=== PATIENT | female | born 1980 | race Caucasian/White ===

== ENCOUNTER 2020-08-03 09:28 | Inpatient (IN) | payer OTHER ==
[~2020-08-03] VITALS: Ht 165.1 cm; Wt 120.7 kg
[~2020-08-03 09:28] MED LIST: DOK PLUS TABLE1 EACH PO; FERROUS SULFAT325 M2 PO; LOPRESSOR 25 MG25 MG PO; LORTAB 5-325 M1 EACH PO; PRADAXA 150 MG150 MG PO; ROBITUSSIN DM UD5 ML PO; VANCOMYCIN IV750 MG IV
[2020-08-03 10:27] LABS: HEMOGLOBIN 13.3 gm/dl (12.3-15.3); RED BLOOD COUNT 4.54 M/UL (4.00-5.10); WHITE BLOOD COUNT 14.1 K/UL (4.5-11.0)
[2020-08-03 12:10] LABS: BUN/CREATININE RATIO 14 (0-10)
[2020-08-03] MEDS ORDERED: VENTOLIN HFA 66.7 GM INH (15:36)
[2020-08-03] MEDS ORDERED: ANORO ELLIPTA1 EACH INH (15:37)
[2020-08-03] MEDS ORDERED: BUPRENORPHIN-N1 EACH SL (15:51)
[2020-08-03] MEDS ORDERED: SINUS RELIEF (16:57)
[2020-08-04 04:58] LABS: HEMOGLOBIN 13.2 gm/dl (12.3-15.3); RED BLOOD COUNT 4.61 M/UL (4.00-5.10); WHITE BLOOD COUNT 11.8 K/UL (4.5-11.0)
[2020-08-04 05:19] LABS: BUN/CREATININE RATIO 14 (0-10)
--- NOTE | 2020-08-05 23:28 | NUR ---
PT IS S/P I&D TO ABDOMEN ON 08/05/20. PT STATED THAT SHE DID NOT WISH TO CHANGE THE DRESSING TODAY FOR SHE JUST HAD SURGERY AND DID NOT WANT TO DEAL WITH CHANGING THE DRESSING. EDUCATION GIVEN, PT STATED SHE WISHES TO START THE DRESSING CHANGE TOMORROW, 08/06/20. ERNESTO
[2020-08-06 04:51] LABS: HEMOGLOBIN 12.5 gm/dl (12.3-15.3); RED BLOOD COUNT 4.49 M/UL (4.00-5.10); WHITE BLOOD COUNT 8.9 K/UL (4.5-11.0)
[2020-08-06 05:18] LABS: BUN/CREATININE RATIO 20 (0-10)
[2020-08-07 08:51] LABS: BUN/CREATININE RATIO 31 (0-10)
[2020-08-08 07:12] LABS: BUN/CREATININE RATIO 38 (0-10)
[2020-08-08] MEDS ORDERED: IBUPROFEN800 MG PO (10:26)
[2020-08-08] MEDS ORDERED: AUGMENTIN 875-1 EACH PO (10:51)
--- NOTE | 2020-08-08 12:05 | NUR ---
INSTRUCTED PATIENT ON SIDE EFFECTS OF MEDS INFORMATION GIVEN, MEDS E-SCRIPTED TO PHARMACY WITH ONE HARD COPY GIVEN ALSO, EDUACATION GIVEN ON MEDS AND CELLULITS. FOLOW UP APPOITMENTS LISTED. VERBALIZED UNDERSTANDING.
--- NOTE | 2020-08-08 15:10 | NUR ---
REPORT CALLED TO [facility], REPORT GIVEN TO DREW.
== END 2020-08-08 14:29 | disposition home health service (06) | DRG 580 ==
LOC: ER1 09:28 → M/S 14:13 → CDU 14:13 → M/S 19:47
PROVIDERS: Physician Assistant; Physician Assistant Medical; Surgery; ADMIT Internal Medicine
PROC: 0J980ZZ Drainage of Abdomen Subcutaneous Tissue and Fascia, Open Approach (ICD-10-PCS; principal; 2020-08-05 13:45)
DX: L02.211 Cutaneous abscess of abdominal wall (principal); F11.20 Opioid dependence, uncomplicated; Z68.41 Body mass index [BMI] 40.0-44.9, adult; E66.01 Morbid (severe) obesity due to excess calories; B95.0 Streptococcus, group A, as the cause of diseases classified elsewhere; L03.311 Cellulitis of abdominal wall; Z86.14 Personal history of Methicillin resistant Staphylococcus aureus infection; Z86.711 Personal history of pulmonary embolism; R59.0 Localized enlarged lymph nodes; R16.2 Hepatomegaly with splenomegaly, not elsewhere classified; Z90.49 Acquired absence of other specified parts of digestive tract; Z86.19 Personal history of other infectious and parasitic diseases; G89.29 Other chronic pain; M54.9 Dorsalgia, unspecified; Z86.16 Personal history of COVID-19
CPT/HCPCS: 36415; 71045; 80048; 80053; 80202; 82728; 83605; 83615; 83735; 85025; 85027; 85379; 86140; 87040; 87070; 87077; 87186; 87205; 96365; 96366; 96372; 96374; 96375; 96376; 99285; G0378; J0696; J1100; J1650; J1885; J2001; J2185; J2250; J2405; J2704; J3010; J3370; J7030; J7050; J7070; J7120; Q9967; U0002

== ENCOUNTER → 2020-09-19 | Outpatient (CLI) | payer OTHER ==
[~2020-09-19] MED LIST changes: +ALLERGY RELIEF10 M1 PO; +ANORO ELLIPTA1 EACH INH; +AUGMENTIN 875-1 EACH PO; +BUPRENORPHIN-N1 EACH SL; +IBUPROFEN800 MG PO; +MEDROL4 MG PO; +PROMETHAZINE-D473 M1 PO; +SINUS RELIEF; +TOPAMAX 25 MG T25 MG PO; +VENTOLIN HFA 66.7 GM INH
== END ==
LOC: ECHO 11:57
DX: Z86.79 Personal history of other diseases of the circulatory system (principal); I07.1 Rheumatic tricuspid insufficiency
CPT/HCPCS: ECHO; 93306

== ENCOUNTER 2020-10-06 13:48 | Inpatient (IN) | payer OTHER ==
[~2020-10-06] VITALS: Ht 162.6 cm; Wt 114.8 kg
[~2020-10-06 13:48] MED LIST changes: -ALLERGY RELIEF10 M1 PO; -MEDROL4 MG PO; -PROMETHAZINE-D473 M1 PO; -TOPAMAX 25 MG T25 MG PO
[2020-10-06 16:42] LABS: HEMOGLOBIN 14.9 gm/dl (12.3-15.3); RED BLOOD COUNT 5.06 M/UL (4.00-5.10); WHITE BLOOD COUNT 4.8 K/UL (4.5-11.0)
[2020-10-06 17:02] LABS: BUN/CREATININE RATIO 15 (0-10)
[2020-10-06] MEDS ORDERED: ALLERGY RELIEF10 M1 PO (22:27)
[2020-10-06] MEDS ORDERED: TOPAMAX 25 MG T25 MG PO (22:28)
[2020-10-06] MEDS ORDERED: PROMETHAZINE-D473 M1 PO (22:28)
[2020-10-07 03:41] LABS: HEMOGLOBIN 14.6 gm/dl (12.3-15.3); RED BLOOD COUNT 5.08 M/UL (4.00-5.10); WHITE BLOOD COUNT 4.1 K/UL (4.5-11.0)
[2020-10-07 04:03] LABS: BUN/CREATININE RATIO 19 (0-10)
[2020-10-08] MEDS ORDERED: MEDROL4 MG PO (11:03)
== END 2020-10-08 13:17 | disposition home or self-care (01) | DRG 189 ==
LOC: ER1 13:48 → CDU 17:48 → M/S 22:08
PROVIDERS: Physician Assistant Medical; Preventive Medicine Occupational Medicine; ADMIT Internal Medicine
DX: J96.01 Acute respiratory failure with hypoxia (principal); J44.1 Chronic obstructive pulmonary disease with (acute) exacerbation; M86.9 Osteomyelitis, unspecified; Z68.41 Body mass index [BMI] 40.0-44.9, adult; F11.20 Opioid dependence, uncomplicated; J44.0 Chronic obstructive pulmonary disease with (acute) lower respiratory infection; D53.9 Nutritional anemia, unspecified; G89.29 Other chronic pain; F19.10 Other psychoactive substance abuse, uncomplicated; M54.9 Dorsalgia, unspecified; Z20.822 Contact with and (suspected) exposure to COVID-19; J20.9 Acute bronchitis, unspecified; E66.01 Morbid (severe) obesity due to excess calories; Z82.49 Family history of ischemic heart disease and other diseases of the circulatory system; Z86.711 Personal history of pulmonary embolism; Z86.19 Personal history of other infectious and parasitic diseases; Z90.49 Acquired absence of other specified parts of digestive tract
CPT/HCPCS: 0240U; 36415; 36600; 71046; 80048; 80053; 81001; 82803; 83735; 83880; 85025; 85027; 85652; 86140; 87086; 94640; 94664; 94760; 96372; 96374; 96375; 99285; J2930; Q9967

== ENCOUNTER → 2020-11-14 | Outpatient (CLI) | payer OTHER ==
[~2020-11-14] MED LIST changes: +ALLERGY RELIEF10 M1 PO; +MEDROL4 MG PO; +PROMETHAZINE-D473 M1 PO; +TOPAMAX 25 MG T25 MG PO
== END ==
LOC: HEART 5 09:18
DX: J44.9 Chronic obstructive pulmonary disease, unspecified (principal); R94.2 Abnormal results of pulmonary function studies
CPT/HCPCS: 94060; 94729

== ENCOUNTER 2021-05-18 18:23 | Emergency (ER) | payer OTHER ==
[2021-05-18 20:06] LABS: BUN/CREATININE RATIO 20 (0-10)
[2021-05-18] MEDS ORDERED: CLEOCIN HCL300 MG PO (20:21)
[2021-05-18 22:28] LABS: HEMOGLOBIN 13.3 gm/dl (12.3-15.3); RED BLOOD COUNT 4.71 M/UL (4.00-5.10); WHITE BLOOD COUNT 5.2 K/UL (4.5-11.0)
== END 2021-05-18 20:30 | disposition home or self-care (01) ==
LOC: ER1 18:23
PROVIDERS: Preventive Medicine Occupational Medicine
DX: L03.311 Cellulitis of abdominal wall (principal)
CPT/HCPCS: 80048; 85025; 86140; 96374; 99283

== ENCOUNTER → 2021-08-21 | Outpatient (CLI) | payer OTHER ==
[~2021-08-21] MED LIST changes: +CLEOCIN HCL300 MG PO
== END ==
LOC: HEART 5 08-02 09:30
DX: I50.810 Right heart failure, unspecified (principal); I07.1 Rheumatic tricuspid insufficiency
CPT/HCPCS: 93306

== ENCOUNTER → 2021-11-21 | Outpatient (CLI) | payer OTHER | LOC: HEART 5 15:45 | DX: J44.9 Chronic obstructive pulmonary disease, unspecified (principal); R94.2 Abnormal results of pulmonary function studies | CPT/HCPCS: 94060; 94729; 95012 ==